=== PATIENT | female | born 1995 | race Asian ===

== ENCOUNTER 2020-01-08 20:15 | Emergency (ER) | payer OTHER ==
[2020-01-08 20:31] VITALS: BP 134/91; PULSE 100; TEMP 98; BMI 21.9
== END 2020-01-08 21:33 | disposition home or self-care (01) ==
LOC: FER 20:15
DX: S86.812A Strain of other muscle(s) and tendon(s) at lower leg level, left leg, initial encounter (principal); V00.131A Fall from skateboard, initial encounter
CPT/HCPCS: 73562-TC-LT-FY; 99283-25